=== PATIENT | female | born 1995 ===

== ENCOUNTER 2017-04-28 18:19 | Emergency (ER) | payer OTHER ==
--- NOTE | 2017-04-28 20:23 | DIAGNOSTIC IMAGING REPORT ---
PROCEDURE: US ABDOMEN ULTRASOUND-LIMITED INDICATION: RIGHT FLANK PAIN TECHNIQUE: Adamson scale and color Doppler sonographic images were obtained of the right upper quadrant. COMPARISON: None. FINDINGS: The liver is normal in size, contour, and echotexture. No mass or biliary dilatation. The gallbladder is normal without stones or sludge. Normal wall thickness at 1.9 mm No pericholecystic fluid or Mason's sign. The common duct is normal at 4.4 mm. The visible portion of the inferior vena cava, abdominal aorta, and portal vein appear normal with appropriate direction of flow in the portal vein. The right kidney cortex is a diffusely thickened, abnormally heterogeneous, hypoechoic with loss of corticomedullary differentiation. The kidney measures 11.8 x 7.0 7.2 cm. No discrete focal mass or cyst. No hydronephrosis or intrarenal shadowing calculus. No perinephric fluid. Proximal ureter was not visualized/nondilated. Blood flow in the renal parenchyma is fairly homogeneous. The left kidney was imaged for comparison and measures about 11.0 x 5.6 x 5.3 cm and demonstrates a normal quantity of renal sinus fat and a normal morphology. The patient is 17 weeks . heart rate is regular at a rate of 173 beats per minute. IMPRESSION: 1. Abnormal thickened right renal cortex with loss of corticomedullary differentiation suggestive of edema. Overall pattern is suggestive of pyelonephritis without focal renal abscess. 2. Normal gallbladder. 3. Discussed with Dr. Joe in the emergency room.
--- NOTE | 2017-04-28 21:22 | ED ORDER SUMMARY ---
..... Patient: BERNIE BRUCE OrderSheet [facility] VisitID: [id number] [place] [address] 22y, F Registration Date/Time: 04/28/2017 ORDER SHEET Weight: 77.1 kg (stated) Allergies: No Known Drug Allergy GENERAL ORDERS: US Abdomen Limited (No) Urgent (18:38 04/28/2017 Estela Haider) (Ack 18:45 LNations ER Tech1) (20:48 RCollier R.N.) US OB Limited (> 4 mo ago) Urgent (18:39 04/28/2017 Estela Haider) (Ack 18:45 LNations ER Tech1) (20:48 RCollier R.N.) CBC w Diff Urgent (18:39 04/28/2017 Estela Haider) (Ack 18:45 LNations ER Tech1) (20:48 RCollier R.N.) CMP Urgent (18:39 04/28/2017 Estela Haider) (Ack 18:45 LNations ER Tech1) (20:48 RCollier R.N.) UA-Culture if indicated Urgent (18:39 04/28/2017 Estela Haider) (Ack 18:45 LNations ER Tech1) (20:54 RCollier R.N.) Lipase Urgent (18:39 04/28/2017 Estela Haider) (Ack 18:45 LNations ER Tech1) (20:48 RCollier R.N.) Serum Quantitative Urgent (18:39 04/28/2017 Estela Haider) (Ack 18:45 LNations ER Tech1) (20:48 RCollier R.N.) Pulse oximeter (18:39 04/28/2017 Estela Haider) (Ack 18:45 LNations ER Tech1) (19:45 RCollier R.N.) MEDICATION ORDERS: Keflex PO 500 mg (NOW) (21:20 04/28/2017 Estela Haider) (21:34 CBradburn R.N.) IV FLUIDS: IV NS : initial bolus 1000 mL (1000 mL/hr), then none - for X1 (NOW) (18:38 04/28/2017 Estela Haider) (Ack 18:53 Toma R.N.) (19:44 Awilda R.N.) Morphine IV 4 mg (HIGH ALERT MEDICATION, NOW) (18:38 04/28/2017 Estela Haider) (Ack 18:53 Toma R.N.) (19:45 RCjuliana R.N.) ORDER SHEET NOTES: [Electronically signed by Jenny Thomas R.N. (21:36 04/28/2017)] [Electronically signed by Joel Joe Dr. (07:07 05/01/2017)] [Electronically locked/signed by Jenny Thomas R.N. (21:36 04/28/2017)]
--- NOTE | 2017-04-28 21:22 | ED NURSING NOTES ---
Clinical Report - Nurses [facility] [address] [place] [address] 04/28/2017 18:20 Patient: BERNIE BRUCE [facility]#: [id number] TRIAGE Triage time 18:24. Acuity: LEVEL 3. Chief Complaint: ABDOMINAL PAIN and NAUSEA. Alert. No acute distress. JOSE ROBERTO COMA SCORE: Jose Roberto Coma Scale: 15- eyes open spontaneously (4); best verbal response- oriented x 4 (5); best motor response- obeys commands (6). HEART TONES: heart tones present (141). --18:30 Sravanthi Lin R.N. 18:24 04/28/17. BP: 119/67. HR: 112. RR: 18. O2 saturation: 97% on room air. Temp: 99 F (oral). Pain level now: 6/10. --18:30 Sravanthi Lin R.N. Weight: 77.1 kg stated. Height/Length: 62 inches Per Patient. BMI: 31.1. --18:27 Sravanthi Lin R.N. Medications None. --18:25 Sravanthi Lin R.N. Medication/allergy information source: the patient. --18:30 Sravanthi Lin R.N. Allergies No Known Drug Allergy. --18:25 Sravanthi Lin R.N. History Arrived by private vehicle. Historian: patient. Accompanied by friend. Primary physician (Danny). Onset. (about 1 week). Describes the quality as "pain" and ( constant). Relates location as in the right abdomen. Notes pain level as 6/10 on arrival and 8/10 at maximum. Provoking / relieving factors: not relieved by anything. (worse-"leaning on it"). PAST MEDICAL HX: Last normal menstrual period- Dec 2016. 2. Para 0. Abortions 1. SOCIAL HX: Heavy tobacco smoker- less than 1 pack per day. History of drug use: heroin. No alcohol use. FALL RISK ASSESSMENT: Fall risk assessment completed. No fall risk identified. FUNCTIONAL ASSESSMENT: Functional assessment: no impairments noted. LEARNING NEEDS ASSESSMENT: The learning needs assessment revealed no barriers. --18:30 Sravanthi Lin R.N. PAST MEDICAL HX: ( Patient reports previous miscarriage at 19 weeks gestation. Pt appears upset after ultrasound exam. offered to dim lights for pt comfort, pt denies. 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 --20:00 Shirley Collins R.N. PROBLEMS: Threatened . Ovarian Cyst. Bleeding , vaginally . Substance Abuse. . OB History. --18:28 Sravanthi Lin R.N. Ectopic [RuleOut]. --18:28 Sravanthi Lin R.N. ADDITIONAL SURGERIES: no known surgeries. Assessment GENERAL / NEURO / PSYCH: Alert. Oriented X 4. Appears in no acute distress. Patient appears calm and cooperative. RESPIRATORY: Respirations not labored. SKIN: Skin is warm and dry. --18:30 Sravanthi Lin R.N. Interventions ID band on patient. To treatment room. --18:30 Sravanthi Lin R.N. PHYSICAL ASSESSMENT 18:34 04/28/17. Ambulatory to room. Patient gowned. GENERAL / NEURO / PSYCH: Alert. Oriented X 4. Appears in no acute distress. RESPIRATORY: Respirations not labored. SKIN: Skin is warm and dry. --18:34 Sravanthi Lin R.N. NURSING PROGRESS NOTES 18:34 04/28/17. Patient gowned. Head of bed elevated. Call light placed in reach. Side rails up x 1. Bed placed in lowest position. Brakes of bed on. --18:34 Sravanthi Lin R.N. Care transferred and report received. --19:07 Shirley Collins R.N. 19:06 04/28/2017 Site #1 started via IV in the right forearm with an 18g angiocath, with aseptic technique and good blood return; one attempt. Blood drawn: rainbow set. Labeled in the presence of the patient and sent to the lab. Saline lock flushed with 10 mL saline. --19:11 Sravanthi Lin R.N. ( Ultrasound exam in progress). --19:30 Shirley Collins R.N. 19:43 04/28/17. BP: 94/58. HR: 105. RR: 15. O2 saturation: 96% on room air. Pain level now: 05/31. --19:44 Shirley Collins R.N. 19:40 04/28/2017 Started bag #1 1000 mL IV Fluids IV NS (Saline); at 1000 mL/hr via site #1 via IV pump. Allergies verified and confirmed 5 rights. IV patency established. IV site checked: no pain, redness, or swelling. IV flushed thoroughly pre- and post-medication administration. --19:44 Shirley Collins R.N. 19:42 04/28/2017 Morphine IVP 4 mg given diluted in NS 10mL over 2 minute(s) via site #1. Allergies verified, confirmed 5 rights and sedative warning given to the patient. IV patency established. IV site checked: no pain, redness, or swelling. IV flushed thoroughly pre- and post-medication administration. IVP given by RN. --19:45 Shirley Collins R.N. Pulse oximeter and NIBP monitor placed on patient; monitor alarms on. --19:45 Shirley Collins R.N. 20:45 04/28/2017 IV Fluids IV NS Discontinued: bag #1 completed. Total amount infused: 1000 mL. IV patency established. IV site checked: no pain, redness, or swelling. IV flushed thoroughly. --20:54 Shirley Collins R.N. Patient ID band checked for patient name and birthdate: patient confirmed. Instructions provided to collect clean catch urine and patient verbalized understanding. Clean catch urine collected with return of michelle-colored urine; sample sent to lab. Specimen labeled in the presence of the patient. --20:55 Shirley Collins R.N. 21:25 04/28/2017 Keflex (Cephalexin) PO Tablets 500 mg given. Allergies verified and confirmed 5 rights. --21:34 Jenny Thomas R.N. 21:30 04/28/2017 Site #1 removed upon discharge. Catheter intact. Manual pressure and bandage applied. --21:34 Jenny Thomas R.N. DISPOSITION / DISCHARGE Condition at departure: improved and stable. No learning barriers present. Discharge instructions provided and reviewed with the patient. Reviewed medication(s) side effects, precautions, dosing and course information. Prescription(s) given to the patient. Patient verbalized understanding. Written instructions provided in Nigerien. No activity restrictions or stop smoking instructions. The patient was discharged home and unaccompanied at time of discharge. She left the Emergency Department ambulatory and via private vehicle. --21:35 Jenny Thomas R.N. 21:30 04/28/17. BP: 106/54. HR: 111. RR: 18. O2 saturation: 96% on room air. Temp: deferred. Pain level now: 03/01. --21:35 Jenny Thomas R.N. Departure time: 2129. --21:35 Jenny Thomas R.N. Locked/Released at 04/28/2017 21:36 by Jenny Thomas R.N.
--- NOTE | 2017-04-28 21:22 | ED ORDER SUMMARY ---
..... Patient: BERNIE BRUCE OrderSheet [facility] VisitID: [id number] [place] [address] 22y, F Registration Date/Time: 04/28/2017 ORDER SHEET Weight: 77.1 kg (stated) Allergies: No Known Drug Allergy GENERAL ORDERS: US Abdomen Limited (No) Urgent (18:38 04/28/2017 Estela Haider) (Ack 18:45 LNations ER Tech1) (20:48 RCollier R.N.) US OB Limited (> 4 mo ago) Urgent (18:39 04/28/2017 Estela Haider) (Ack 18:45 LNations ER Tech1) (20:48 RCollier R.N.) CBC w Diff Urgent (18:39 04/28/2017 Estela Haider) (Ack 18:45 LNations ER Tech1) (20:48 RCollier R.N.) CMP Urgent (18:39 04/28/2017 Estela Haider) (Ack 18:45 LNations ER Tech1) (20:48 RCollier R.N.) UA-Culture if indicated Urgent (18:39 04/28/2017 Estela Haider) (Ack 18:45 LNations ER Tech1) (20:54 RCollier R.N.) Lipase Urgent (18:39 04/28/2017 Estela Haider) (Ack 18:45 LNations ER Tech1) (20:48 RCollier R.N.) Serum Quantitative Urgent (18:39 04/28/2017 Estela Haider) (Ack 18:45 LNations ER Tech1) (20:48 RCollier R.N.) Pulse oximeter (18:39 04/28/2017 Estela Haider) (Ack 18:45 LNations ER Tech1) (19:45 RCollier R.N.) MEDICATION ORDERS: Keflex PO 500 mg (NOW) (21:20 04/28/2017 Estela Haider) (21:34 CBradburn R.N.) IV FLUIDS: IV NS : initial bolus 1000 mL (1000 mL/hr), then none - for X1 (NOW) (18:38 04/28/2017 Estela Haider) (Ack 18:53 Toma R.N.) (19:44 Awilda R.N.) Morphine IV 4 mg (HIGH ALERT MEDICATION, NOW) (18:38 04/28/2017 Estela Haider) (Ack 18:53 Toma R.N.) (19:45 RCjuliana R.N.) ORDER SHEET NOTES: [Electronically signed by Jenny Thomas R.N. (21:36 04/28/2017)] [Electronically signed by Joel Joe Dr. (07:07 05/01/2017)] [Electronically locked/signed by Jenny Thomas R.N. (21:36 04/28/2017)]
--- NOTE | 2017-04-28 21:22 | ED CLINICAL REPORT ---
Clinical Report - Physicians/Mid Levels [facility] [address] [place] [address] 04/28/2017 18:20 Patient: BERNIE BRUCE Time Seen: 1826. Arrived- By private vehicle. Historian- patient. HISTORY OF PRESENT ILLNESS Chief Complaint: FLANK PAIN. It is described as sharp. No radiation. It is described as located in the right flank. At its maximum, severity described as moderate. When seen in the E.D., severity described as moderate. Modifying factors- worsened by swallowing. Relieved by rest. This started past week and is still present and worsening. It was abrupt in onset and has been intermittent but is not gone now. The patient has had nausea (states it is in the morning and related to her current ). No loss of appetite, vomiting or diarrhea. No additional abdominal pain. No recent travel. Similar symptoms previously: None. Recent medical care: The patient was seen recently in a clinic. REVIEW OF SYSTEMS No constipation, black stools, hematemesis, bloody stools or fever. All systems otherwise negative, except as recorded above. PAST HISTORY See nurses notes. Additional Surgeries: no known surgeries. Medications: None. Allergies: No Known Drug Allergy. SOCIAL HISTORY Smoker- current status unknown. 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 No alcohol use. No recent travel. Is a local resident. FAMILY HISTORY (sister with hx of kidney stones). ADDITIONAL NOTES The nursing notes have been reviewed. PHYSICAL EXAM Vital Signs: 04/28/2017 18:24 BP: 119/67. HR: 112. RR: 18. O2 saturation: 97%. Temp: 99 F. Pain level now: 6/10. Oxygen saturation normal. Appearance: Alert. Oriented X3. No acute distress. Eyes: Pupils equal, round and reactive to light. Eyes normal inspection. ENT: Ears normal. Nose normal. Pharynx normal. Neck: Normal inspection. CVS: Normal heart rate and rhythm. Heart sounds normal. Pulses normal. Respiratory: No respiratory distress. Breath sounds normal. Chest nontender. Abdomen: Soft and nontender. Bowel sounds normal. (negative Mason's. No tenderness at McBurney's. no rebound or guarding Fundus palpated level of umbilicus but above the pubic symphysis). Skin: Skin warm and dry. Normal skin color. No rash. Normal skin turgor. Extremities: Extremities exhibit normal ROM. No lower extremity edema. LABS, X-RAYS, AND EKG Abdominal Sonogram: (PROCEDURE: US ABDOMEN ULTRASOUND-LIMITED INDICATION: RIGHT FLANK PAIN TECHNIQUE: Adamson scale and color Doppler sonographic images were obtained of the right upper quadrant. COMPARISON: None. FINDINGS: The liver is normal in size, contour, and echotexture. No mass or biliary dilatation. The gallbladder is normal without stones or sludge. Normal wall thickness at 1.9 mm No pericholecystic fluid or Mason's sign. The common duct is normal at 4.4 mm. The visible portion of the inferior vena cava, abdominal aorta, and portal vein appear normal with appropriate direction of flow in the portal vein. The right kidney cortex is a diffusely thickened, abnormally heterogeneous, hypoechoic with loss of corticomedullary differentiation. The kidney measures 11.8 x 7.0 7.2 cm. No discrete focal mass or cyst. No hydronephrosis or intrarenal shadowing calculus. No perinephric fluid. Proximal ureter was not visualized/nondilated. Blood flow in the renal parenchyma is fairly homogeneous. The left kidney was imaged for comparison and measures about 11.0 x 5.6 x 5.3 cm and demonstrates a normal quantity of renal sinus fat and a normal morphology. The patient is 17 weeks . heart rate is regular at a rate of 173 beats per minute. IMPRESSION: 1. Abnormal thickened right renal cortex with loss of corticomedullary differentiation suggestive of edema. Overall pattern is suggestive of pyelonephritis without focal renal abscess. 2. Normal gallbladder.). The study was independently viewed by me and interpreted by the radiologist. The study was discussed with the radiologist (via phone and pacs). Laboratory Tests: UA-Culture if indicated: (DEVAN: 04/28/2017 20:15) ( MsgRcvd 04/28/2017 21:11) IP Test Result Flag Units (Reference) URINE COLOR YELLOW URINE APPEARANCE SL CLOUDY URINE GLUCOSE NEGATIVE (NEGATIVE) URINE BILIRUBIN NEGATIVE (NEGATIVE) URINE KETONE NEGATIVE (NEGATIVE) URINE SPECIFIC GRAVITY 1.015 (1.010-1.030) URINE PH 7.0 (5.0-8.0) URINE PROTEIN 2+ (NEGATIVE) URINE UROBILINOGEN 2.0 EU/dL (0.2-1.0) The urobilinogen reagent area may react with interferingsubstances known to react with Alisha's reagent such asp-aminosalicylic acid and sulfonamides. Atypical colorreactions may be obtained in the presence of highconcentrations of p-aminobenzoic acid. The absence ofurobilinogen cannot be determined with this test. URINE NITRITE POSITIVE (NEGATIVE) URINE BLOOD 3+ (NEGATIVE) URINE LEUK ESTERASE POSITIVE (NEGATIVE) CBC w Diff: (DEVAN: 04/28/2017 19:00) ( [facility] 04/28/2017 20:15) Final results Test Result Flag Units (Reference) WHITE BLOOD COUNT 12.5 H K/uL (4.5-11.5) RED BLOOD COUNT 3.58 L M/uL (4.00-5.20) HEMOGLOBIN 9.9 L gm/dL (12.0-16.0) HEMATOCRIT 29.8 L % (36.0-46.0) MEAN CELL VOLUME 83 fL (80-100) MEAN CORPUSCULAR HGB 28 pg (26-34) MEAN CORPUSCULAR HGB CONC 33 g/dL (31-37) RED CELL DISTRIBUTION WIDTH 15.0 H % (11.6-14.8) PLATELET COUNT 78 L K/uL (150-400) POLY % 85 H % (50-75) BAND % 4 % (0-8) LYMPH 6 L % (25-40) MONO 4 % (3-14) EOSINOPHIL % 1 % (0-4) BASOPHIL % 0 % (0-2) METAMYELOCYTE % 0 % (0-1) MYELOCYTE 0 % (0-1) OTHER CELL TYPE 0 ANISOCYTOSIS 1+ CMP: (DEVAN: 04/28/2017 19:00) ( [facility] 04/28/2017 20:36) Final results Test Result Flag Units (Reference) GLUCOSE 107 mg/dL (70-110) BUN 11 mg/dL (7-18) CREATININE 1.1 mg/dL (0.6-1.3) Estimated GFR >60 mL/min Estimated GFR- >60 mL/min Note: Persistent reduction over 3 months in eGFR<60 mL/min/1.73 m2 defines CKD. Patients with eGFR values>=60 mL/min/1.73 m2 may also have CKD if evidence ofpersistent proteinuria. Additional information may be foundat www.kidney.org. SODIUM 133 L mmol/L (136-145) POTASSIUM 3.0 L mmol/L (3.5-5.1) CHLORIDE 99 mmol/L (98-107) CARBON DIOXIDE 23 mmol/L (21-32) CALCIUM 8.0 L mg/dL (8.5-10.1) TOTAL PROTEIN 5.4 L g/dL (6.4-8.2) ALBUMIN 1.8 L g/dL (3.3-5.0) BILIRUBIN, TOTAL 0.4 mg/dL (0.0-1.0) ALKALINE PHOSPHATASE 68 U/L (46-116) AST (SGOT) 11 L U/L (15-37) ALT (SGPT) 13 U/L (12-78) LIPASE 34 L U/L (73-393) BETA HCG, QUANTITATIVE 55646 mIU/mL REFERENCE RANGE:Adult Males: <2 mIU/mLNon- Females: <6 mIU/mL Females:Approximate Approximate hCGGestational Age Range (mIU/mL) 0-1 week 0-501-2 weeks 40-3002-3 weeks 100-86305-9 weeks 500-38519-6 months 5,000-200,0002-3 months 10,000-100,0002nd trimester 3,000-50,0003rd trimester 1,000-50,000 . PROGRESS AND PROCEDURES Course of Care: the patient is a SABpresenting for evaluation of right-sided flank pain. At this time differential diagnosis includes urinary tract infection, renal colic, biliary colic. Patient will be evaluated with ultrasound. Because the patient is , would like to avoid CT scanning the patient's abdomen. Pain medication has been ordered after discussing the risks and benefits of these. Patient is agreeable to the treatment plan at this time. Workup is pending the patient's workup was significant for the findings above. Patient was significant urinary tract infection. First dose of antibiotics provided here in the emergency department. Patient without signs of distress on ultrasound heart tones are noted to be at 173 bpm. Because of the patient's workup here in the emergency department, do not feel patient has a surgical abdomen. Symptoms significantly improved while here in the emergency department. Repeat abdominal exam is reassuring. Patient continues to be nontoxic. Patient is in no acute distress. Had a discussion with the patient in regards to her workup here in the emergency department including diagnosis, home care, follow-up, and return precautions. All questions have been answered. The patient expressed understanding of these instructions and was agreeable to them. Disposition: Discharged. Condition: good. CLINICAL IMPRESSION 04/28/2017 19:43 BP: 94/58. HR: 105. RR: 15. O2 saturation: 96%. Pain level now: 7/10. Blood pressure normal. Oxygen saturation normal. Acute pyelonephritis (right). INSTRUCTIONS Warnings: GENERAL WARNINGS: Return or contact your physician immediately if your condition worsens or changes unexpectedly, if not improving as expected, or if other problems arise. SPECIFICALLY, return if you develop pain, fever, vomiting, the inability to keep fluids down, blood in vomitus, blood in diarrhea, fainting or lightheadedness. Your Current Medications: CONTINUE TAKING THE FOLLOWING MEDICATIONS: None*. Prescription Medications: Cephalexin 500 mg: take 1 capsule orally every 8 hours for 7 days. No refill. (disp 21 caps) [place] 5 mg / 325 mg tablets: take 1 orally every 6 hours as needed for pain. Dispense twelve (12). No refill. Substitution is permissible. Follow-up: Return to the emergency department as needed. Follow up with your doctor in three days. Reason for referral: recheck today's concerns. Summary of care provided to patient via paper. Screening today revealed the patient's blood pressure to be in the normal range. The patient should follow up with a primary care provider for blood pressure management. Understanding of the discharge instructions verbalized by patient. (Electronically signed by Joel Joe Dr. 05/01/2017 7:07)
--- NOTE | 2017-05-01 07:07 | ED MED RECONCILIATION SUMMARY ---
Patient: BERNIE BRUCE Medication Reconciliation Report [facility] VisitID: [id number] [place] [address] 22y, F Registration Date/Time: 04/28/2017 Weight: 77.1 kg Height/Length: 62 in. BMI: 31.1 ALLERGIES: No Known Drug Allergy The patient's Home Medications are listed below: NONE. The source(s) of the original Home Medication information: patient The following Medications were given to the patient in the Emergency Department: IV NS IV Fluids bolus 0, then 1000 mL/hr, administered: 04/28/2017 7:40:00 PM Morphine [IVP] IVP 4 mg diluted in NS 10 mL, administered: 04/28/2017 7:42:00 PM Keflex [PO] PO 500 mg, administered: 04/28/2017 9:25:00 PM The following Medications were prescribed to the patient: Cephalexin 500 mg: take 1 capsule orally every 8 hours for 7 days. No refill.(disp 21 caps) -- Joel Joe Dr. Norco 5 mg / 325 mg tablets: take 1 orally every 6 hours as needed for pain. Dispense twelve (12). No refill. Substitution is permissible. -- Joel Joe Dr.
--- NOTE | 2017-05-01 07:07 | ED MAR SUMMARY ---
..... Medication Administration Record [facility] [address] [place] [address] Patient: BERNIE BRUCE Visit ID: [id number] 22y, F Weight: 77.1 kg Height/Length: 62 in BMI: 31.1 ALLERGIES: No Known Drug Allergy Start 19:40 04/28/2017 Shirley Collins RJorge, Stop 20:45 04/28/2017 Shirley Collins R.N. Medication Administered: IV NS (SALINE), Dose: IV Fluids, Rate: 1000 mL/hr, Dispensed: 1000 mL bag, Site: #1 right forearm. Medication Ordered: IV NS : initial bolus 1000 mL (1000 mL/hr), then none - for X1 (NOW). Given 19:42 04/28/2017 Shirley Collins R.N. Medication Administered: MORPHINE [IVP], Dose: 4 mg IVP over 2 minute(s), In: NS 10 mL, Site: #1 right forearm. Medication Ordered: Morphine IV 4 mg (HIGH ALERT MEDICATION, NOW). Given 21:25 04/28/2017 Jenny Thomas R.N. Medication Administered: KEFLEX [PO] (CEPHALEXIN), Dose: 500 mg Tablets PO. Medication Ordered: Keflex PO 500 mg (NOW).
--- NOTE | 2017-05-01 07:07 | ED DISCHARGE INSTRUCTIONS ---
Patient: BERNIE BRUCE General Instructions [facility] VisitID: [id number] [place] [address] 22y, F Registration Date/Time: 04/28/2017 04/28/2017 19:43 BP: 94/58. HR: 105. RR: 15. O2 saturation: 96%. Pain level now: 7/10. Blood pressure normal. Oxygen saturation normal. Acute pyelonephritis (right). INSTRUCTIONS Warnings: GENERAL WARNINGS: Return or contact your physician immediately if your condition worsens or changes unexpectedly, if not improving as expected, or if other problems arise. SPECIFICALLY, return if you develop pain, fever, vomiting, the inability to keep fluids down, blood in vomitus, blood in diarrhea, fainting or lightheadedness. Your Current Medications: CONTINUE TAKING THE FOLLOWING MEDICATIONS: None*. Prescription Medications: Cephalexin 500 mg: take 1 capsule orally every 8 hours for 7 days. No refill. (disp 21 caps) Granite 5 mg / 325 mg tablets: take 1 orally every 6 hours as needed for pain. Dispense twelve (12). No refill. Substitution is permissible. Follow-up: Return to the emergency department as needed. Follow up with your doctor in three days. Reason for referral: recheck today's concerns. Summary of care provided to patient via paper. Screening today revealed the patient's blood pressure to be in the normal range. The patient should follow up with a primary care provider for blood pressure management. Understanding of the discharge instructions verbalized by patient. ADDITIONAL INFORMATION Kidney Infection [Adult, Female] An infection of the kidney is also called "pyelonephritis". It usually starts as a bladder infection ("cystitis") which spreads to the kidneys. Pyelonephritis is more serious than a bladder infection. It can cause severe illness if not treated properly. The usual symptoms include an aching pain in the back, side or lower abdomen. Other symptoms may include fever, chills, nausea, vomiting, an urge to urinate and a burning sensation when passing urine. Home Care: Stay home from work or school. Rest in bed until your fever breaks and you are feeling better. Drink lots of fluid (at least 6-8 glasses a day, unless you must restrict fluids for other medical reasons). This will force the medicine into your urinary system and flush the bacteria out of your body. Avoid sexual intercourse until you have finished all of your medicine and your symptoms have gone away. Avoid caffeine, alcohol and spicy foods which may irritate the kidney and bladder. You may use acetaminophen (Tylenol) or ibuprofen (Motrin, Advil) to control pain, unless another pain medicine was prescribed. [NOTE: If you have chronic liver or kidney disease or ever had a stomach ulcer or GI bleeding, talk with your doctor before using these medicines.] Follow Up with your doctor or as advised by our staff for a repeat urine test in 10 days. This will ensure that your infection is fully cleared. [NOTE: If you had an X-ray or CT scan, it will be reviewed by a specialist. You will be notified of any new findings that may affect your care.] Get Prompt Medical Attention if any of the following occur: Fever over 100.4F (38.0C) after 48 hours of treatment No improvement by the third day of treatment Increasing back or abdominal pain Repeated vomiting or inability to take oral medicine Weakness, dizziness or fainting Flank Pain[Uncertain Cause] The flank is the area between the upper abdomen and the back. Pain here is often related to the kidneyan infection or a kidney stone. Other causes of flank pain include spinal arthritis, pinched nerve from a disk injury, back muscle strain or spasm. The cause of your flank pain is not certain and further tests may be needed. Home Care: You may use acetaminophen (Tylenol) or ibuprofen (Motrin, Advil) to control pain, unless another medicine was prescribed. [NOTE: If you have chronic liver or kidney disease or ever had a stomach ulcer or GI bleeding, talk with your doctor before using these medicines.] If the cause of your pain is coming from the muscles, ice or heat may give relief. During the first two days after injury, apply an ICE PACK to the painful area for 20 minutes every 2-4 hours. This will reduce swelling and pain. HEAT (hot shower, hot bath or heating pad) works well for muscle spasm. You can start with ice, then switch to heat after two days. Some patients feel best alternating ice and heat treatments. Use the one method that feels the best to you. Follow Up with your doctor or as advised by our staff for further evaluation if your symptoms are not improving over the next few days. Return Promptly or contact your doctor if any of the following occur: Repeated vomiting Fever of 100.4F (38C) or higher, or as directed by your healthcare provider Increasing flank pain Pain that spreads to the front of the abdomen Dizziness, weakness or fainting Blood in your urine Burning with urination or frequent urination Increasing pain in the leg Numbness or weakness in the leg Cephalexin Monohydrate Oral tablet What is this medicine? CEPHALEXIN (sef a MARIBEL in) is a cephalosporin antibiotic. It is used to treat certain kinds of bacterial infections It will not work for colds, flu, or other viral infections. How should I use this medicine? Take this medicine by mouth with a full glass of water. Follow the directions on the prescription label. This medicine can be taken with or without food. Take your medicine at regular intervals. Do not take your medicine more often than directed. Take all of your medicine as directed even if you think you are better. Do not skip doses or stop your medicine early. Talk to your hosting engineer regarding the use of this medicine in children. While this drug may be prescribed for selected conditions, precautions do apply. What side effects may I notice from receiving this medicine? Side effects that you should report to your doctor or health farm or ranch animal caretaker as soon as possible: allergic reactions like skin rash, itching or hives, swelling of the face, lips, or tongue breathing problems pain or trouble passing urine redness, blistering, peeling or loosening of the skin, including inside the mouth severe or watery diarrhea unusually weak or tired yellowing of the eyes, skin Side effects that usually do not require medical attention (report to your doctor or health farm or ranch animal caretaker if they continue or are bothersome): gas or heartburn genital or anal irritation headache joint or muscle pain nausea, vomiting What may interact with this medicine? probenecid some other antibiotics What if I miss a dose? If you miss a dose, take it as soon as you can. If it is almost time for your next dose, take only that dose. Do not take double or extra doses. There should be at least 4 to 6 hours between doses. Where should I keep my medicine? Keep out of the reach of children. Store at room temperature between 59 and 86 degrees F (15 and 30 degrees C). Throw away any unused medicine after the expiration date. What should I tell my health care provider before I take this medicine? They need to know if you have any of these conditions: kidney disease stomach or intestine problems, especially colitis an unusual or allergic reaction to cephalexin, other cephalosporins, penicillins, other antibiotics, medicines, foods, dyes or preservatives or trying to get breast-feeding What should I watch for while using this medicine? Tell your doctor or health farm or ranch animal caretaker if your symptoms do not begin to improve in a few days. Do not treat diarrhea with over the counter products. Contact your doctor if you have diarrhea that lasts more than 2 days or if it is severe and watery. If you have diabetes, you may get a false-positive result for sugar in your urine. Check with your doctor or health farm or ranch animal caretaker. Hydrocodone Bitartrate, Acetaminophen Oral tablet What is this medicine? ACETAMINOPHEN; HYDROCODONE (a set a ANÍBAL lore fen; dominic droe KOE done) is a pain reliever. It is used to treat mild to moderate pain. How should I use this medicine? Take this medicine by mouth. Swallow it with a full glass of water. Follow the directions on the prescription label. If the medicine upsets your stomach, take the medicine with food or milk. Do not take more than you are told to take. Talk to your hosting engineer regarding the use of this medicine in children. This medicine is not approved for use in children. What side effects may I notice from receiving this medicine? Side effects that you should report to your doctor or health farm or ranch animal caretaker as soon as possible: allergic reactions like skin rash, itching or hives, swelling of the face, lips, or tongue breathing problems confusion feeling faint or lightheaded, falls stomach pain yellowing of the eyes or skin Side effects that usually do not require medical attention (report to your doctor or health farm or ranch animal caretaker if they continue or are bothersome): nausea, vomiting stomach upset What may interact with this medicine? alcohol antihistamines isoniazid medicines for depression, anxiety, or psychotic disturbances medicines for sleep muscle relaxants naltrexone narcotic medicines (opiates) for pain phenobarbital ritonavir tramadol What if I miss a dose? If you miss a dose, take it as soon as you can. If it is almost time for your next dose, take only that dose. Do not take double or extra doses. Where should I keep my medicine? Keep out of the reach of children. This medicine can be abused. Keep your medicine in a safe place to protect it from theft. Do not share this medicine with anyone. Selling or giving away this medicine is dangerous and against the law. Store at room temperature between 15 and 30 degrees C (59 and 86 degrees F). Protect from light. Keep container tightly closed. Throw away any unused medicine after the expiration date. Discard unused medicine and used packaging carefully. Pets and children can be harmed if they find used or lost packages. What should I tell my health care provider before I take this medicine? They need to know if you have any of these conditions: brain tumor Crohn's disease, inflammatory bowel disease, or ulcerative colitis drink more than 3 alcohol-containing drinks per day drug abuse or addiction head injury heart or circulation problems kidney disease or problems going to the bathroom liver disease lung disease, asthma, or breathing problems an unusual or allergic reaction to acetaminophen, hydrocodone, other opioid analgesics, other medicines, foods, dyes, or preservatives or trying to get breast-feeding What should I watch for while using this medicine? Tell your doctor or health farm or ranch animal caretaker if your pain does not go away, if it gets worse, or if you have new or a different type of pain. You may develop tolerance to the medicine. Tolerance means that you will need a higher dose of the medicine for pain relief. Tolerance is normal and is expected if you take the medicine for a long time. Do not suddenly stop taking your medicine because you may develop a severe reaction. Your body becomes used to the medicine. This does NOT mean you are addicted. Addiction is a behavior related to getting and using a drug for a non-medical reason. If you have pain, you have a medical reason to take pain medicine. Your doctor will tell you how much medicine to take. If your doctor wants you to stop the medicine, the dose will be slowly lowered over time to avoid any side effects. You may get drowsy or dizzy when you first start taking the medicine or change doses. Do not drive, use machinery, or do anything that may be dangerous until you know how the medicine affects you. Stand or sit up slowly. There are different types of narcotic medicines (opiates) for pain. If you take more than one type at the same time, you may have more side effects. Give your health care provider a list of all medicines you use. Your doctor will tell you how much medicine to take. Do not take more medicine than directed. Call emergency for help if you have problems breathing. The medicine will cause constipation. Try to have a bowel movement at least every 2 to 3 days. If you do not have a bowel movement for 3 days, call your doctor or health farm or ranch animal caretaker. Too much acetaminophen can be very dangerous. Do not take Tylenol (acetaminophen) or medicines that contain acetaminophen with this medicine. Many non-prescription medicines contain acetaminophen. Always read the labels carefully. You have been given the following additional information: Pyelonephritis, Female (Adult) Flank Pain, Uncertain Cause Cephalexin Monohydrate Oral tablet Hydrocodone Bitartrate, Acetaminophen Oral tablet (Electronically signed by Joel Joe Dr. 05/01/2017 7:07)
--- NOTE | 2017-05-01 07:07 | ED MAR SUMMARY ---
..... Medication Administration Record [facility] [address] [place] [address] Patient: BERNIE BRUCE Visit ID: [id number] 22y, F Weight: 77.1 kg Height/Length: 62 in BMI: 31.1 ALLERGIES: No Known Drug Allergy Start 19:40 04/28/2017 Shirley Collins RJorge, Stop 20:45 04/28/2017 Shirley Collins R.N. Medication Administered: IV NS (SALINE), Dose: IV Fluids, Rate: 1000 mL/hr, Dispensed: 1000 mL bag, Site: #1 right forearm. Medication Ordered: IV NS : initial bolus 1000 mL (1000 mL/hr), then none - for X1 (NOW). Given 19:42 04/28/2017 Shirley Collins R.N. Medication Administered: MORPHINE [IVP], Dose: 4 mg IVP over 2 minute(s), In: NS 10 mL, Site: #1 right forearm. Medication Ordered: Morphine IV 4 mg (HIGH ALERT MEDICATION, NOW). Given 21:25 04/28/2017 Jenny Thomas R.N. Medication Administered: KEFLEX [PO] (CEPHALEXIN), Dose: 500 mg Tablets PO. Medication Ordered: Keflex PO 500 mg (NOW).
--- NOTE | 2017-05-01 07:07 | ED MED RECONCILIATION SUMMARY ---
Patient: BERNIE BRUCE Medication Reconciliation Report [facility] VisitID: [id number] [place] [address] 22y, F Registration Date/Time: 04/28/2017 Weight: 77.1 kg Height/Length: 62 in. BMI: 31.1 ALLERGIES: No Known Drug Allergy The patient's Home Medications are listed below: NONE. The source(s) of the original Home Medication information: patient The following Medications were given to the patient in the Emergency Department: IV NS IV Fluids bolus 0, then 1000 mL/hr, administered: 04/28/2017 7:40:00 PM Morphine [IVP] IVP 4 mg diluted in NS 10 mL, administered: 04/28/2017 7:42:00 PM Keflex [PO] PO 500 mg, administered: 04/28/2017 9:25:00 PM The following Medications were prescribed to the patient: Cephalexin 500 mg: take 1 capsule orally every 8 hours for 7 days. No refill.(disp 21 caps) -- Joel Joe Dr. Norco 5 mg / 325 mg tablets: take 1 orally every 6 hours as needed for pain. Dispense twelve (12). No refill. Substitution is permissible. -- Joel Joe Dr.
== END 2017-04-28 21:30 | disposition home or self-care (01) ==
LOC: ED SRH 18:19
DX: O23.02 Infections of kidney in pregnancy, second trimester (principal); N10 Acute pyelonephritis; Z3A.17 17 weeks gestation of pregnancy
CPT/HCPCS: 90004; 90100; 90148; 90197; 90469; 91643; 92235; 95059